=== PATIENT | female | born 1985 | race Two or more races ===

== ENCOUNTER 2017-10-08 07:27 | Inpatient (IN) | payer OTHER ==
[~2017-10-08] VITALS: Ht 165.1 cm; Wt 80.7 kg
[2017-10-08] MEDS ORDERED: PRENATABS RX T1 EACH PO (09:27)
[2017-10-08] MEDS ORDERED: DIALYVITE 800-1 EACH PO (09:27)
[2017-10-08] MEDS ORDERED: CEPHALEXIN PO (09:27)
== END 2017-10-12 13:44 | DRG 766 ==
LOC: O/R 10-09 07:27 → OB/GYN 10-09 15:16
PROVIDERS: Obstetrics & Gynecology
PROC: 4A1HXCZ Monitoring of Products of Conception, Cardiac Rate, External Approach (ICD-10-PCS; 2017-10-09)
PROC: 10D00Z1 Extraction of Products of Conception, Low, Open Approach (ICD-10-PCS; principal; 2017-10-09 12:45)
DX: O34.29 Maternal care due to uterine scar from other previous surgery (principal); Z37.0 Single live birth; Z3A.38 38 weeks gestation of pregnancy